=== PATIENT | male | born 1955 | race African-American/Black ===

== ENCOUNTER 2023-12-25 07:34 | Outpatient (CLI) | payer MEDICARE ==
[2023-12-25] MEDS ORDERED: Iopamidol 370 76% 100 ML VIAL ONE (13:00)
== END 2023-12-25 07:35 | disposition home or self-care (01) ==
LOC: CSHCT 07:34
PROVIDERS: ATTEND Internal Medicine
DX: G54.0 Brachial plexus disorders (principal); I70.0 Atherosclerosis of aorta; R91.8 Other nonspecific abnormal finding of lung field
CPT/HCPCS: 36415; 71275; 82565 ×2; Q9967